=== PATIENT | female | born 1935 | race Caucasian/White ===

== ENCOUNTER 2017-01-20 16:53 | Outpatient (CLI) | payer MEDICARE ==
[2017-01-20 22:52] LABS: Hemoglobin A1c 5.2 % (4.0-6.0)
== END 2017-01-20 16:54 | disposition home or self-care (01) ==
LOC: NAV LABSP 16:53
PROVIDERS: ATTEND Family Medicine
DX: E11.9 Type 2 diabetes mellitus without complications (principal); I48.91 Unspecified atrial fibrillation
CPT/HCPCS: 83036

== ENCOUNTER 2017-02-14 13:27 | Outpatient (CLI) | payer MEDICARE ==
[2017-02-14 13:52] LABS: Bilirubin Negative (Negative); Blood, Urine Negative (Negative); Clarity Clear (Clear); Glucose, Urine (Dipstick) Negative (Negative); Leukocyte Large (Negative); Nitrite Negative (Negative); Protein, Urine (Dipstick) Negative (Neg-Trace); Urobilinogen 0.2 mg/dL (0.2-1.0)
[2017-02-14 14:00] LABS: RBC/HPF 0-3 HPF (0-3)
[2017-02-14 14:01] LABS: Bacteria/HPF Rare-Few HPF (None Seen); Hyaline Casts/LPF 0-3 HYALINE CAST LPF (0-3 Hyaline); Squamous Epithelial 0-3 HPF (0-3)
== END 2017-02-14 13:28 | disposition home or self-care (01) ==
LOC: NAV LAB 13:27
PROVIDERS: ATTEND Family Medicine
DX: E11.9 Type 2 diabetes mellitus without complications (principal); R82.90 Unspecified abnormal findings in urine; N39.0 Urinary tract infection, site not specified; J44.9 Chronic obstructive pulmonary disease, unspecified
CPT/HCPCS: 81001; 87086